=== PATIENT | female | born 1965 | race Caucasian/White ===

== ENCOUNTER 2016-05-07 21:50 | Emergency (ER) | payer OTHER ==
[~2016-05-07 21:50] MED LIST: ADVAIR 1001 DISK W/D PO; ALBUTEROL17 GM INH; ATENOLOL PO; AUGMENTIN PO; BACLOFEN10 MG PO; BACTRIM DS TABL1 TA1 PO; BACTRIM DS TABL1 TA2 PO; CLINDAMYCIN HC300 MG PO; DARVOCET-N 1001 TA1 PO; KEFLEX500 M1 PO; KEFLEX500 MG PO; LAMICTAL PO; LORATADINE PO; LORTAB 5/500 TA1 TA1 PO; NASONEX17 GM; NEURONTIN300 MG PO; PEN-VEE K PO; PHENERGAN25 MG PO; PLAQUENIL200 MG PO; PRILOSEC PO; SEROQUEL PO; SINGULAIR PO; ULTRAM PO; UNKNOWN MEDS; VICODIN 5/500 T1 TAB PO; ZANTAC150 MG PO
== END 2016-05-07 22:01 | disposition home or self-care (01) ==
LOC: CFTX 21:50
DX: S39.012A Strain of muscle, fascia and tendon of lower back, initial encounter (principal); F17.210 Nicotine dependence, cigarettes, uncomplicated; F31.9 Bipolar disorder, unspecified; J44.9 Chronic obstructive pulmonary disease, unspecified; X50.9XXA Other and unspecified overexertion or strenuous movements or postures, initial encounter
CPT/HCPCS: 96372; 99283; J1885